=== PATIENT | female | born 1975 ===

== ENCOUNTER 2018-05-22 19:24 | Emergency (ER) | payer SELFPAY ==
--- NOTE | 2018-05-22 21:00 | ER Document Report ---
ED Medical Screen (RME) - General Chief Complaint: Headache <24 hrs old Stated Complaint: HEADACHE, VISION PROBLEMS Time Seen by Provider: 05/22/18 20:49 Notes: Upon walking into examination room patient is playing on her cell phone, Full range of motion of her neck-looking around talking to her daughter. Upon seeing me she puts both hands on her head and starts moaning. Patient is a 42-year-old female presenting to the emergency department complaining of a headache. Patient states headache has increased over the last hour. Patient states she has had blurred vision, and tunnel vision. 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 Patient states the neurologist was in [place] and she was unable to get to the office. Patient states she recently moved to the area. Patient is our primary care provider. Patient denies fever, URI symptoms, chest pain, shortness of breath. Patient states she thinks she was treated for migraines in the past but does not take any medications for migraines. Past medical history: Brain tumor, fibromyalgia, depression Medications: Lyrica, Prozac, Depakote Allergies: NSAIDs Physical exam: 5 out of 5 strength all 5 extremities. Pupils equal reacting to light, no photophobia. Patient admits to pain upon every area that I palpate her entire head and back. I have greeted and performed a rapid initial assessment of this patient. A comprehensive ED assessment and evaluation of the patient, analysis of test results and completion of the medical decision making process will be conducted by additional ED providers. TRAVEL OUTSIDE OF THE [place] IN LAST 30 DAYS: No - Related Data Allergies/Adverse Reactions: ibuprofen Adverse Reaction (Verified 05/22/18 19:26) NSAIDS (Non-Steroidal Anti-Inflamma Adverse Reaction (Verified 05/22/18 19:26) Physical Exam - Vital signs Vitals: Temp Pulse Resp BP Pulse Ox 98.5 F 76 20 129/65 H 94 05/22/18 19:30 05/22/18 19:30 05/22/18 19:30 05/22/18 19:30 05/22/18 19:30 Course - Vital Signs Vital signs: Temp Pulse Resp BP Pulse Ox 98.5 F 76 20 129/65 H 94 05/22/18 19:30 05/22/18 19:30 05/22/18 19:30 05/22/18 19:30 05/22/18 19:30
[2018-05-22] MEDS ORDERED: DIPHENHYDRAMINE HCL 50 MG/ML VIAL IV ONE (21:01)
[2018-05-22] MEDS ORDERED: NORMAL SALINE 1000 ML 1,000 ML IV ONE (21:01)
[2018-05-22] MEDS ORDERED: DIPHENHYDRAMINE HCL 25 MG CAPSULE ONE (21:49)
[2018-05-22 21:55] LABS: ABSOLUTE BASOPHILS # (AUTO) 0.1 10^3/uL (0.0-0.2); ABSOLUTE EOSINOPHILS # (AUTO) 0.2 10^3/uL (0.0-0.6); ABSOLUTE LYMPHOCYTES (AUTO) 4.3 10^3/uL (0.5-4.7); ABSOLUTE NEUT (AUTO) 10.2 10^3/uL (1.7-8.2); BASOPHILS % (AUTO) 0.9 % (0-2); HEMATOCRIT 44.5 % (36.0-47.0); HEMOGLOBIN 15.4 g/dL (12.0-15.5); LYMPHOCYTES % (AUTO) 27.2 % (13-45); MEAN CORPUSCULAR HGB CONC 34.6 g/dL (32.0-36.0); MEAN CORPUSCULAR VOLUME 90 fl (80-97); MONOCYTES % (AUTO) 6.3 % (3-13); PLATELET COUNT 418 10^3/uL (150-450); RED BLOOD COUNT 4.96 10^6/uL (3.72-5.28); RED CELL DISTRIBUTION WIDTH 12.9 % (11.5-14.0); SEGMENTED NEUTROPHILS % (AUTO) 64.6 % (42-78); TOTAL CELLS COUNTED % (AUTO) 100 %; WHITE BLOOD COUNT 15.7 10^3/uL (4.0-10.5)
[2018-05-22 23:37] VITALS: BP 124/69
== END 2018-05-23 00:55 | disposition left against medical advice (07) ==
LOC: ER 19:24
DX: R51 Headache (principal); H53.9 Unspecified visual disturbance; Z88.6 Allergy status to analgesic agent
CPT/HCPCS: 99281; 96360; 96361; 36415; 85025; 81025; J7030